=== PATIENT | male | born 1975 | race African-American/Black ===

== ENCOUNTER → 2019-07-21 09:57 | Outpatient (CLI) | payer OTHER, SELFPAY ==
[2019-07-24 14:21] LABS: Immunoglobulin A 537 mg/dL (47-310)
== END ==
PROVIDERS: PCP Pediatrics; Visit Provider Internal Medicine Gastroenterology
DX: R19.4 Change in bowel habit (principal)
CPT/HCPCS: 36415; 82784; 83516

== ENCOUNTER → 2019-08-04 08:51 | Outpatient (CLI) | payer OTHER, SELFPAY ==
[2019-08-06 16:10] LABS: Anti Gliadin IgG Ab 3 Units (<20); Gliadin Gluten IgA 15 Units (<20)
== END ==
PROVIDERS: Visit Provider Internal Medicine Gastroenterology
DX: R19.4 Change in bowel habit (principal)
CPT/HCPCS: 36415; 83516

== ENCOUNTER → 2019-09-02 13:04 | Outpatient (CLI) | payer OTHER, SELFPAY ==
--- NOTE | 2019-09-02 | DI.MRI.S_ITS ---
PROCEDURE: MR BRAIN (IAC) WWO CON INDICATIONS: Unspecified sensorineural hearing loss TECHNIQUE: Noncontrast sagittal T1 spin echo, axial FLAIR, axial gradient echo, axial diffusion and ADC through the brain. Axial thin-slice 3D CISS, coronal TruFISP, axial T1 spin echo with fat saturation through the internal auditory canals. After the administration of contrast, thin slice axial and coronal T1 spin echo with fat saturation through the internal auditory canals, and axial T1 spin echo with fat saturation through the brain. COMPARISON: None. FINDINGS: Image quality: Excellent. Cerebellopontine angles: No cerebellopontine angle masses. Inner ear structures appear normally formed. No suspicious enhancement in the internal auditory canal or along the course of the 7th cranial nerve. CSF spaces: Ventricles are normal in size and shape. No extra-axial fluid collections. Basal cisterns are patent. Brain: No intracranial bleeds or mass effects. Reich-white matter interface is intact. No abnormal intracranial enhancement. Diffusion weighted images demonstrate no acute ischemic insults. Brainstem appears normal. Normal intravascular flow voids are present. Skull and face: Calvarial marrow signal is normal. Orbits appear normal. Sinuses: Sinuses and mastoids are clear. IMPRESSION: No significant abnormality is seen. Specifically, no masses or abnormal enhancement are seen within the cerebellopontine angle cisterns or within the internal auditory canals. Dictated by: Evgeny Damon M.D. on 09/02/2019 at 14:19 Approved by: Evgeny Damon M.D. on 09/02/2019 at 14:21
== END ==
PROVIDERS: Visit Provider Otolaryngology
DX: H90.5 Unspecified sensorineural hearing loss (principal)
CPT/HCPCS: 70553; A9579